=== PATIENT | female | born 1965 | race Caucasian/White ===

== ENCOUNTER 2017-02-15 13:24 | Emergency (ER) | payer BC ==
[~2017-02-15] VITALS: Ht 157.5 cm; Wt 87.6 kg
[~2017-02-15 13:24] MED LIST: NOHOMEMEDS; SYNTHROID175 MCG PO
[2017-02-15 14:17] LABS: HEMATOCRIT 42.3 % (36.0-46.0); MCH 29.5 PG (29.0-34.0); MCHC 33.3 G/DL (30.0-36.0); MCV 88.5 FL (83-99); MEAN PLAT.VOLUME 10.1 uM^3 (9.5-12.4); PLATELET COUNT 309 K/uL (156-360); RBC DIS.WIDTH-CV 12.8 % (11.8-14.6); RBC DIS.WIDTH-SD 41.6 % (39-53); RED BLOOD COUNT 4.78 M/uL (3.80-5.20)
[2017-02-15 14:30] LABS: CHLORIDE 103 mEq/L (99-109); POTASSIUM 3.6 mEq/L (3.7-5.4); SODIUM 141 mEq/L (136-147)
[2017-02-15 14:32] LABS: GLUCOSE 122 mg/dL (70-99)
[2017-02-15 14:33] LABS: ANION GAP 10 MEQ/L (2-14)
[2017-02-15 14:36] LABS: GFR ESTIMATE (CALCULATED) > 59 mL/min/; UREA NITROGEN (BUN) 10 mg/dL (9-23)
[2017-02-15 14:45] LABS: TROP-I INTERPRETATION NEGATIVE; TROPONIN-I < 0.01 ng/mL (0.0-0.30)
[2017-02-15 17:35] LABS: TROP-I INTERPRETATION NEGATIVE; TROPONIN-I < 0.01 ng/mL (0.0-0.30)
[2017-02-15 19:53] LABS: INTERNAL CONTROL VALID? YES; MONOSPOT (MONONUCLEOSIS SEROL) NEGATIVE
[2017-02-15 21:00] VITALS: BP 174/110
[2017-02-16 09:21] LABS: LYME DISEASE SEROLOGY SCREEN POSITIVE (NEGATIVE)
== END 2017-02-15 21:00 | disposition home or self-care (01) ==
LOC: EME 13:24
PROVIDERS: Physician Assistant
DX: M79.1 Myalgia (principal); I10 Essential (primary) hypertension; E03.9 Hypothyroidism, unspecified
CPT/HCPCS: 71020; 80048; 82550 91; 83880; 84443; 84484; 85027; 86308; 86617 90; 86618; 93005; 99281; 99284; J1885